=== PATIENT | male | born 1950 | race Caucasian/White ===

== ENCOUNTER 2017-05-28 12:07 | Outpatient (CLI) | payer BC ==
[2017-05-28 13:31] LABS: Bilirubin Negative (Negative); Blood, Urine Negative (Negative); Clarity CLEAR (Clear); Glucose, Urine (Dipstick) Negative (Negative); Leukocyte Negative (Negative); Nitrite Negative (Negative); Protein, Urine (Dipstick) Negative (Neg-Trace); Specific Gravity, Urine 1.014 (1.002-1.036); Urobilinogen 0.2 mg/dL (0.2-1.0); pH, Urine 6.5 (5.0-9.0)
[2017-05-28 13:41] LABS: Bacteria/HPF None Seen HPF (None Seen); Hyaline Casts/LPF 0-3 HYALINE CAST LPF (0-3 Hyaline); RBC/HPF 0-3 HPF (0-3); Squamous Epithelial None Seen HPF (0-3); WBC/HPF None Seen HPF (0-3)
--- NOTE | 2017-05-28 21:05 | EKG ---
Test Reason : Blood Pressure : / mmHG Vent. Rate : 060 BPM Atrial Rate : 060 BPM P-R Int : 156 ms QRS Dur : 090 ms QT Int : 382 ms P-R-T Axes : 018 069 034 degrees QTc Int : 382 ms Normal sinus rhythm Normal ECG When compared with ECG of 08-SEP-2012 17:13, Abberant conduction is no longer Present Questionable change in QRS axis Confirmed by TABITHA ADAMS ([id number]) on 05/28/2017 9:04:41 PM Referred By: IERO Confirmed By:TABITHA ADAMS
== END 2017-05-28 12:08 | disposition home or self-care (01) ==
LOC: LABBT 12:07
PROVIDERS: ATTEND Orthopaedic Surgery
DX: Z01.810 Encounter for preprocedural cardiovascular examination (principal); Z01.812 Encounter for preprocedural laboratory examination; M17.11 Unilateral primary osteoarthritis, right knee
CPT/HCPCS: 81001; 93005; 93010

== ENCOUNTER 2017-05-28 12:30 | Inpatient (IN) | payer BC, MEDICARE ==
[2017-05-28 12:40] VITALS: BMI 26.5
[2017-06-10] MEDS ORDERED: Tranexamic Acid 1,000 MG/100 ML BAG ONE ×2 (07:37→11:49)
[2017-06-10] MEDS ORDERED: Clindamycin/D5W 600 mg/50 ml Premix Bag ONE (07:37)
[2017-06-10] MEDS ORDERED: Midazolam HCl 2 mg/2 ml Vial ONE ×2 (07:41→10:46)
[2017-06-10] MEDS ORDERED: Fentanyl 100 MCG/2 ML VIAL ONE ×5 (07:41→12:58)
[2017-06-10] MEDS ORDERED: Ropivacaine 0.2% HCl/PF 20 ML ONE (07:42)
[2017-06-10] MEDS ORDERED: Vancomycin HCl 1.5 GM in Sodium Chloride 0.9% 250 ML 300 ML IVPB SCH ×2 (08:00→21:00)
[2017-06-10] MEDS ORDERED: Bupivacaine 0.5% 10 ML VIAL ONE (09:14)
[2017-06-10] MEDS ORDERED: Zolpidem Tartrate 5 MG TAB PO PRN ×2 (09:25→09:50)
[2017-06-10] MEDS ORDERED: HYDROcodone/Acetaminophen 5/325 mg Tablet PO PRN (09:25)
[2017-06-10] MEDS ORDERED: Promethazine HCl 25 MG/ML VIAL IM PRN ×3 (09:25→11:44)
[2017-06-10] MEDS ORDERED: Ropivacaine 0.2% 550 ML 550 ML NERVE BLCK SCH (09:25)
[2017-06-10] MEDS ORDERED: traMADol HCl 50 MG TAB PO PRN ×2 (09:25→09:50)
[2017-06-10] MEDS ORDERED: Ondansetron HCl/PF 4 MG/2 ML Vial IVP PRN ×3 (09:25→11:44)
[2017-06-10] MEDS ORDERED: Fentanyl 100 MCG/2 ML VIAL IV PRN (09:27)
[2017-06-10] MEDS ORDERED: Acetaminophen 325 MG TAB PO PRN (09:50)
[2017-06-10] MEDS ORDERED: HYDROcodone/Acetaminophen 10/325 mg Tablet PO PRN ×2 (09:50)
[2017-06-10] MEDS ORDERED: diphenhydrAMINE 25 MG CAP PO PRN (09:50)
[2017-06-10] MEDS ORDERED: Tranexamic Acid 1,000 MG in Sodium Chloride 0.9% 100 ML IVPB SCH (10:00)
[2017-06-10] MEDS ORDERED: Promethazine HCl 25 MG/ML VIAL SLOW IVP PRN (11:44)
--- NOTE | 2017-06-10 11:49 | OP ---
DATE OF PROCEDURE: 06/10/2017 PREOPERATIVE DIAGNOSIS: Right knee osteoarthrosis. POSTOPERATIVE DIAGNOSIS: Right knee osteoarthrosis. PROCEDURE PERFORMED: Right total knee replacement using [employer] (acquired by [employer] in 2014) pinless navigation. SURGEON: Rai Vincent M.D. COMPONENT OVERHAUL OPERATOR: Eddie Major PA-C. BLOOD LOSS: Minimal. COMPLICATIONS: None. ANESTHETIC: The patient did have a general anesthetic. He also had some preoperative blocks. IMPLANTS PLACED INTO THE RIGHT KNEE: [place] [employer] total knee system. The femur was a size 7 cr uciate retaining femur. We used a size 6 universal tibial baseplate. We used a size 6 x 11 mm CS X3 tibial bearing and an asymmetric 29 x 9 X3 patella. DISPOSITION: He did go to the recovery room in stable condition. INDICATIONS: Kristian is an active 67-year-old male, who had an open meniscectomy performed years ago and has had severe varus deformity of the knee, and at this time, has failed nonoperative treatment. At this time, wished to have the surgery performed and have his knee replaced. PROCEDURE IN DETAIL: After all appropriate consent forms were explained and signed, the patient was taken back to the Operating Room and at this time was given general anesthetic. Once the level of an esthesia was appropriate, a well-padded tourniquet was placed on the right leg and the leg was then p repped and draped in standard surgical fashion. The limb was exsanguinated and tourniquet taken up t o 300 mmHg. Midline incision was made with a 10 blade down through the skin and subcutaneous tissue. Bovie electrocautery was used to coagulate any brisk venous bleeding. A new blade was used to make a medial parapatellar arthrotomy. Small subperiosteal release was performed medially and excess fat pad was removed. The knee was flexed up to gain access to the femur. The femur was navigated and d istal femoral resection was made. Epicondylar access was used to align our sizing jig and this was p inned in place. We sized our femur to be a size 7 cruciate retaining femur, 4:1 cutting block was ap plied and pinned. Anterior and posterior chamfer cuts were then made. We navigated out our proximal tibia and made our proximal tibial resection. Spreaders were used to remove any posterior osteophyt es off the back of the femur as well as remaining meniscal tissue. A long alignment [place] was then use d to achieve correct rotation of our tibial baseplate and a size 6 universal tibial baseplate was cho sen. This was pinned in place. We trialed the polyethylene and a size 6 x 11 mm CS X3 tibial-bearin g polyethylene gave us full extension and good stability throughout range of motion. Two towel clips and a saw were used to cut our patella. Three lug nuts were drilled and an asymmetric 29 x 9 X3 pat john was trialed which sat nicely in the trochlear groove. We then drilled our femur and punched our tibia. All components were removed. The knee was thoroughly irrigated and dried. Cement was mixed into the cement gun on the back table. Components were then placed. The knee was held out in full extension until the cement had dried. All excess bone cement was removed. Multiple #2 Vicryl stitch es as well as a Quill was used to close our extensor mechanism. 0 Quill followed by a running Monode rm was then used to close the skin. Surgicel glue was then used on the skin. Once this had dried, s oft tissue dressing was applied to the limb, tourniquet was let down, and the toes pinked up nicely. The patient was then awakened and taken to the Recovery Room in stable condition. All counts were c orrect at the end of the case. The patient did receive preoperative IV antibiotics. The patient was injected with Exparel for postoperative pain relief.
[2017-06-10] MEDS ORDERED: Ropivacaine 0.5% HCl/PF (150 MG/30 ML VIAL) ONE (14:02)
[2017-06-10] MEDS ORDERED: Ondansetron HCl/PF 4 MG/2 ML Vial ONE (15:00)
[2017-06-10] MEDS ORDERED: Lidocaine 1% PF 5 ML VIAL ONE (15:00)
[2017-06-10] MEDS ORDERED: Propofol 200 MG/20 ML VIAL ONE (15:00)
[2017-06-10] MEDS ORDERED: Ketorolac Tromethamine 30 MG/ML VIAL ONE (15:00)
[2017-06-10] MEDS: Clindamycin/D5W 900 MG in Premix Bag 1 BAG IVPB SCH ×2 (15:06→20:10)
[2017-06-10] MEDS: Sodium Chloride 0.9% 1,000 ML IV SCH ×2 (15:07→20:12)
--- NOTE | 2017-06-10 16:56 | CON ---
PRIMARY CARE PROVIDER: Dr. Austin. HISTORY: The patient is status post right total knee arthroplasty. He has had no chest pain, shortn ess of breath, fever, sweats, chills, nausea or vomiting. PAST MEDICAL HISTORY: Hypertension, gastroesophageal reflux disease, dyslipidemia, asthma. MEDICATIONS: Protonix 40 mg a day, Crestor 5 mg a day, irbesartan 300 mg a day, Advair Diskus 250/50 one puff daily. ALLERGIES: PENICILLIN. PAST SURGICAL HISTORY: Left total knee replacement, L-spine surgery, C-spine surgery, right inguinal herniorrhaphy. FAMILY HISTORY: Father of CHF at 91. Mother is alive and well. SOCIAL HISTORY: , at bedside. CODE STATUS: FULL CODE status. 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 Does not smoke. Drinks occasional alcohol. REVIEW OF SYSTEMS: General: No headaches, dizziness or fainting. Eyes: No double vision, blurred vision, flashing lights. ENT: No ear pain or drainage. No nasal bleeding. No trouble swallowing. Cardiac: No chest pain, orthopnea or paroxysmal nocturnal dyspnea. Respiratory: No cough, wheezin g or asthma. Gastrointestinal: No nausea, vomiting, diarrhea, abdominal pain. Genitourinary: No h ematuria, dysuria or nocturia. Musculoskeletal: He has had marked pain and swelling and difficulty walking with his right knee. He has had no chronic swelling or pain in his muscles of his legs. Nayely rologic: No strokes, seizures or focal weakness. Psychiatric: No anxiety, depression. Skin: Easy bruising. Easy skin tears on his arms from his occupation and sun exposure. Heme/Lymph: No tender or swollen lymph nodes in the axilla, inguinal or cervical area. PHYSICAL EXAMINATION: GENERAL: Alert, cooperative, pleasant gentleman. VITAL SIGNS: Blood pressure 152/79, temperature 96.1, pulse 72, respirations 20. HEENT: Reveal Pupils equal, round, and reactive to light. Extraocular movements are intact. Sclera e white. Tympanic membranes clear. Nose clear. Oral mucous membranes are wet. Dental hygiene is g ood. NECK: Supple, without jugular venous distention, adenopathy, thyromegaly. CHEST: Clear to auscultation and percussion. HEART: Regular rate and rhythm. First and second heart sounds are clear. There are no appreciated murmurs or gallops. ABDOMEN: Soft, bowel sounds are normal. There is no hepatosplenomegaly, no mass, no rebound, no bru its. EXTREMITIES: Reveal no cyanosis, clubbing or edema. SKIN: He has a bandaged right knee. He has skin tears and ecchymoses on both forearms. HEMATOLOGIC/LYMPHATIC: No tender or swollen lymph nodes in axilla, inguinal or cervical area. NEUROLOGICAL: Cranial nerves II-XII are intact. Moves all extremities. Sensation is intact. LABORATORY AND X-RAY FINDINGS: EKG normal sinus rhythm, no ST-T abnormality, reviewed by me. LABORATORY DATA: CBC is normal. Basic metabolic profile normal. Blood sugar 122. ADMITTING DIAGNOSES: 1. Osteoarthritis, post right total knee replacement. 2. Hypertension. 3. Gastroesophageal reflux disease. 4. Asthma. 5. Dyslipidemia. PLAN: The patient is stable, doing well postop. We will follow with you. Agree with reinstituting all of his home medicines.
[2017-06-10] MEDS: Ketorolac Tromethamine 30 MG/ML VIAL IVP SCH ×2 (17:20→18:58)
[2017-06-10] MEDS: HYDROcodone/Acetaminophen 5/325 mg Tablet PO PRN ×2 (17:21→21:23)
[2017-06-10] MEDS: Mometasone/Formoterol 120 PUFF INHALER INH SCH (18:27)
[2017-06-10] MEDS: Aspirin 81 mg Enteric Coated Tablet PO SCH (20:12)
[2017-06-10] MEDS: Senokot S 8.6-50 MG TAB PO SCH (20:12)
[2017-06-10] MEDS: traMADol HCl 50 MG TAB PO PRN (20:18)
[2017-06-10] MEDS ORDERED: Rosuvastatin 5 MG TAB PO SCH (21:00)
[2017-06-11] MEDS: HYDROcodone/Acetaminophen 5/325 mg Tablet PO PRN ×3 (02:05→14:06)
[2017-06-11] MEDS: Ketorolac Tromethamine 30 MG/ML VIAL IVP SCH ×3 (02:11→15:02)
[2017-06-11] MEDS: traMADol HCl 50 MG TAB PO PRN ×2 (04:52→16:22)
[2017-06-11] MEDS: Sodium Chloride 0.9% 1,000 ML IV SCH ×2 (05:01→11:34)
[2017-06-11 05:58] LABS: Hemoglobin 11.7 g/dL (14.0-18.0); Mean Corpuscular HGB CONC 32.6 g/dL (32.0-36.0); Mean Corpuscular Hemoglobin 32.9 pg (27.0-31.0); Mean Platelet Volume 8.4 fL (7.4-10.4); Platelet Count 194 thou/uL (130-400); RBC Distribution Width 11.7 % (11.5-14.5); Red Blood Cell (RBC) Count 3.56 mill/uL (4.70-6.10); White Blood Cell (WBC) Count 8.4 thou/uL (4.8-10.8)
[2017-06-11] MEDS: Mometasone/Formoterol 120 PUFF INHALER INH SCH (06:58)
[2017-06-11] MEDS: Aspirin 81 mg Enteric Coated Tablet PO SCH (08:37)
[2017-06-11] MEDS: Senokot S 8.6-50 MG TAB PO SCH (08:37)
[2017-06-11] MEDS ORDERED: Ferrous Gluconate 324 MG TAB PO SCH (09:00)
[2017-06-11] MEDS ORDERED: Multivitamin W/ Minerals 1 TAB PO SCH (09:00)
--- NOTE | 2017-06-11 13:36 | PDOC.PN ---
- Subjective Encounter Start Date: 06/11/17 Encounter Start Time: 13:34 Subjective: min soreness R knee - Objective MAR Reviewed: Yes Vital Signs & Weight: Vital Signs (12 hours) Temp Pulse Pulse Resp BP BP Pulse Ox 06/11/17 09:20 60 131/64 06/11/17 08:40 98.4 F 77 16 131/64 95 06/11/17 08:00 98.4 F 77 16 06/11/17 02:06 98 F 74 16 129/74 94 L Pulse Ox 06/11/17 09:20 94 L 06/11/17 08:40 06/11/17 08:00 06/11/17 02:06 Weight Admit Weight 185 lb Weight 185 lb I&O: 06/10/17 06/11/17 06/12/17 06:59 06:59 06:59 Intake Total 1459 Output Total 600 Balance 859 Result Diagrams: 06/11/17 05:30 Phys Exam - Physical Examination Neck: no JVD Respiratory: clear to auscultation bilateral Cardiovascular: RRR, no significant murmur Gastrointestinal: soft, non-tender, positive bowel sounds Musculoskeletal: no edema Dx/Plan (1) HTN (hypertension) Code(s): I10 - ESSENTIAL (PRIMARY) HYPERTENSION Status: Chronic Qualifiers: Hypertension type: essential hypertension Qualified Code(s): I10 - Essential (primary) hypertension (2) GERD (gastroesophageal reflux disease) Code(s): K21.9 - GASTRO-ESOPHAGEAL REFLUX DISEASE WITHOUT ESOPHAGITIS Status: Chronic Qualifiers: Esophagitis presence: with esophagitis Qualified Code(s): K21.0 - Gastro- esophageal reflux disease with esophagitis (3) Dyslipidemia Code(s): E78.5 - HYPERLIPIDEMIA, UNSPECIFIED Status: Acute (4) Asthma Code(s): J45.909 - UNSPECIFIED ASTHMA, UNCOMPLICATED Status: Chronic Qualifiers: Asthma severity: unspecified severity Asthma persistence: intermittent Asthma complication type: unspecified Qualified Code(s): J45.20 - Mild intermittent asthma, uncomplicated - Plan doing well, cont antihypertensive, inhaler, statin, PPI * .
[2017-06-11 17:23] VITALS: BP 128/60; TEMP 98.7
--- NOTE | 2017-06-12 16:11 | DIS ---
DATE OF ADMISSION: 06/10/2017 DATE OF DISCHARGE: 06/11/2017 PRIMARY CARE PROVIDER: Martinez Austin M.D. REFERRING DOCTOR: Dr. Rai Vincent. DISCHARGE DISPOSITION: Home. FINAL DIAGNOSES: Status post right total knee replacement, dyslipidemia, asthma, gastroesophageal re flux disease, and hypertension. DISCHARGE MEDICATIONS: Advair Diskus 250/50 one puff daily, irbesartan 300 mg a day, Protonix 40 mg a day, Crestor 5 mg a day. CODE STATUS: FULL. ALLERGIES: PENICILLIN. PENDING AT THE TIME OF DISCHARGE: Nothing. HOSPITAL COURSE: The patient placed in the hospital on 06/10/2017, underwent right total knee replac ement by Dr. Rai Vincent. Postoperative course was uncomplicated. [facility] was consulted fo r medical management. At the time of discharge, his vital signs were stable. He was doing well. La boratory done in the hospital: CBC: White count 8.4, hemoglobin 11.7, platelet count 194,000. The patient underwent physical therapy and was discharged for physical therapy at outpatient [facility]. He is to follow up with Dr. Martinez Austin. He will follow up with Dr. Rai Vincent on 06/18 at 1:30 p.m.
== END 2017-06-11 17:24 | disposition home or self-care (01) | DRG 470 ==
LOC: SURG A 06-10 06:55 → SJJU 06-10 12:08
PROVIDERS: ADMIT Orthopaedic Surgery; ATTEND Orthopaedic Surgery
PROC: 0SRC0J9 Replacement of Right Knee Joint with Synthetic Substitute, Cemented, Open Approach (ICD-10-PCS; principal; 2017-06-10)
PROC: 3E0T3BZ Introduction of Anesthetic Agent into Peripheral Nerves and Plexi, Percutaneous Approach (ICD-10-PCS; 2017-06-10)
DX: M17.11 Unilateral primary osteoarthritis, right knee (principal); E78.5 Hyperlipidemia, unspecified; I10 Essential (primary) hypertension; K21.9 Gastro-esophageal reflux disease without esophagitis; J45.20 Mild intermittent asthma, uncomplicated
CPT/HCPCS: 36415; 85027; 94664; A4306; C1713; C1776; G8978-GP-CL; G8979-GP-CJ; J1885; J2001; J2250; J2405; J2704; J2795; J3010; J3370; J3490; J7050

== ENCOUNTER 2017-06-04 13:33 | Outpatient (CLI) | payer BC, MEDICARE ==
[2017-06-04 14:14] LABS: #Basophils 0.1 thou/uL (0.0-0.2); #Eosinphils 0.5 thou/uL (0.0-0.7); #Lymphocytes 1.5 thou/uL (1.20-3.40); #Monocytes 0.5 thou/uL (0.11-0.59); #Neutrophils 3.1 thou/uL (1.40-6.50); %Basophils 1.5 % (0.0-1.0); %Eosinophils 8.8 % (0.0-10.0); %Lymphocytes 26.5 % (21.0-51.0); %Monocytes 8.1 % (0.0-10.0); %Neutrophils 55.1 % (42.0-75.0); Hemoglobin 15.6 g/dL (14.0-18.0); Mean Corpuscular Hemoglobin 32.2 pg (27.0-31.0); Mean Platelet Volume 8.4 fL (7.4-10.4); Platelet Count 243 thou/uL (130-400); RBC Distribution Width 11.7 % (11.5-14.5); Red Blood Cell (RBC) Count 4.83 mill/uL (4.70-6.10); White Blood Cell (WBC) Count 5.6 thou/uL (4.8-10.8)
[2017-06-04 14:15] LABS: INR-International Normal Ratio 1.1
[2017-06-04 14:29] LABS: Anion Gap 10 mmol/L (10-20); BUN (Urea Nitrogen) 16 mg/dL (8.4-25.7); Calc. Creatinine Clearance 0 mL/min (70-130); Calcium 9.5 mg/dL (7.8-10.44); Carbon Dioxide 28 mmol/L (23-31); Chloride 104 mmol/L (98-107); Estimated GFR-MDRD Greater than 90; Glucose 122 mg/dL (80-115); Potassium 3.9 mmol/L (3.5-5.1); Sodium 138 mmol/L (136-145)
== END 2017-06-04 13:34 | disposition home or self-care (01) ==
LOC: LABBT 13:33
PROVIDERS: ATTEND Orthopaedic Surgery
DX: Z01.812 Encounter for preprocedural laboratory examination (principal); M17.11 Unilateral primary osteoarthritis, right knee
CPT/HCPCS: 80048; 85025; 85610; 86850; 86900; 86901; 87081

== ENCOUNTER 2021-10-27 08:42 | Outpatient (CLI) | payer MEDICARE, OTHER | END 2021-10-27 08:43 | disposition home or self-care (01) | LOC: ULT 08:42 | PROVIDERS: ATTEND Internal Medicine Gastroenterology | DX: R10.13 Epigastric pain (principal) | CPT/HCPCS: 76705 ==

== ENCOUNTER 2021-12-28 07:41 | Outpatient (CLI) | payer MEDICARE, OTHER | END 2021-12-28 07:42 | disposition home or self-care (01) | LOC: NM 07:41 | PROVIDERS: ATTEND Physician Assistant Medical | DX: R10.13 Epigastric pain (principal); K29.70 Gastritis, unspecified, without bleeding; B96.81 Helicobacter pylori [H. pylori] as the cause of diseases classified elsewhere | CPT/HCPCS: 78227; A9537 ==